=== PATIENT | male | born 1960 | race Caucasian/White ===

== ENCOUNTER → 2017-12-29 09:45 | Outpatient (POV) | payer OTHER, SELFPAY ==
[2017-12-29 09:59] VITALS: BP 167/98; PULSE 109; RESP 18; O2SAT 98
--- NOTE | 2017-12-29 11:49 | HMH.PMCON ---
Assessment and Plan (1) Degenerative disc disease Current visit: Yes Status: Chronic Qualifiers: Spinal region: lumbar Qualified Code(s): M51.36 - Other intervertebral disc degeneration, lumbar region Category: Medical (2) Postlaminectomy syndrome Current visit: Yes Status: Chronic Category: Medical Code(s): M96.1 - Postlaminectomy syndrome, not elsewhere classified (3) Radiculopathy Current visit: Yes Status: Chronic Qualifiers: Spinal region: lumbar Qualified Code(s): M54.16 - Radiculopathy, lumbar region Category: Medical Code(s): M54.10 - Radiculopathy, site unspecified - Assessment and plan all Dx Assessment and Plan for all problems:: I discussed with the patient that we would not be medically managing him. Patient and I discussed right to tell a neurostimulator to help with her neck and low back pain along with his radicular symptoms. I provided the patient information with this. Patient is going to review and see if this is something he would like to pursue. I believe it would be beneficial given his pain symptomology along with his failure of physical therapy, injective therapy, medications and anti-inflammatories. This note was dictated using voice recognition software and may contain errors or omissions HPI - Data of Consult Consult date: 12/29/17 Requesting Physician: Lucy Machado APRN Primary Care Provider: Maryellen Easley - Consult Narrative Reason for consult: Back pain, leg pain, Shoulder pain History of present illness: Mr. Lipscomb is a 57 year old male who presents today for consultation in regards to his neck pain, arm pain, back pain, leg pain. Patient was living in [place] being seen by pain management down there after his laminectomy. Patient then transferred care up to [place] to Dr. Bautista office. Patient was seen twice and put on Percocet. The clinic subsequently closed. Patient is here today to discuss options. I discussed with the patient that we do not do medical management patient. Patient and I discussed options for his care. Patient is tried and failed injections in the past. Patient and I talked about neuro stimulation. Patient is interested in this. Patient states that he has neck and right shoulder pain along with low back and bilateral leg pain CC: Lucy Machado APRN [facility] History I have reviewed the patient's past medical history: Yes Medical History: Reports:: Hypertension Other Medical History: Reports: Arthritis Laterality Cases: Bilateral: Arthroscopy Shoulder - *Social History Smoking Status: Current every day smoker Tobacco Type: cigarettes # Packs/Day (cigarettes): 1 Alcohol Intake: never Occupational Status: other Housing: house - Psychiatric History Expresses thoughts of harming self/others: None Suicide Plan Description: No Plan *Family Hx:: Unable to obtain Review of Systems - Review of Systems ROS General: no recent weight change, no fever, no sleep disturbances Respiratory: no cough, no shortness of air, no recurring pulmonary infections Cardiovascular/Peripheral Vascular: No chest pain, No palpitations, no edema, no shortness of breath. Gastrointestinal: no incontinence, normal bowel movements reported Genitourinary: no incontinence Musculoskeletal: Back pain, leg pain, neck pain, arm pain Psychiatric: normal mood/ affect Neurological: [denies weakness in extremities], [denies balance issues] Meds Home Medications Medication Instructions Recorded Confirmed Type Meloxicam 15 mg PO DAILY 12/29/17 12/29/17 History Methocarbamol [Methocarbamol 500mg 500 mg PO DAILY 12/29/17 12/29/17 History Tablet] Oxycodone HCl/Acetaminophen 10 mg PO TID 12/29/17 12/29/17 History [Oxycodone W/Apap 325mg Tablet] Telmisartan 40 mg PO DAILY 12/29/17 12/29/17 History hydroCHLOROthiazide 50 mg PO DAILY 12/29/17 12/29/17 History [Hydrochlorothiazide 50mg Tab] Allergies Al
--- NOTE | 2017-12-29 11:53 | P.CONS_ITS ---
Assessment and Plan (1) Degenerative disc disease Current visit: Yes Status: Chronic Qualifiers: Spinal region: lumbar Qualified Code(s): M51.36 - Other intervertebral disc degeneration, lumbar region Category: Medical (2) Postlaminectomy syndrome Current visit: Yes Status: Chronic Category: Medical Code(s): M96.1 - Postlaminectomy syndrome, not elsewhere classified (3) Radiculopathy Current visit: Yes Status: Chronic Qualifiers: Spinal region: lumbar Qualified Code(s): M54.16 - Radiculopathy, lumbar region Category: Medical Code(s): M54.10 - Radiculopathy, site unspecified - Assessment and plan all Dx Assessment and Plan for all problems:: I discussed with the patient that we would not be medically managing him. Patient and I discussed right to tell a neurostimulator to help with her neck and low back pain along with his radicular symptoms. I provided the patient information with this. Patient is going to review and see if this is something he would like to pursue. I believe it would be beneficial given his pain symptomology along with his failure of physical therapy, injective therapy, medications and anti-inflammatories. This note was dictated using voice recognition software and may contain errors or omissions HPI - Data of Consult Consult date: 12/29/17 Requesting Physician: Lucy Machado APRN Primary Care Provider: Maryellen Easley - Consult Narrative Reason for consult: Back pain, leg pain, Shoulder pain History of present illness: Mr. Lipscomb is a 57 year old male who presents today for consultation in regards to his neck pain, arm pain, back pain, leg pain. Patient was living in [place] being seen by pain management down there after his laminectomy. Patient then transferred care up to [place] to Dr. Bautista office. Patient was seen twice and put on Percocet. The clinic subsequently closed. Patient is here today to discuss options. I discussed with the patient that we do not do medical management patient. Patient and I discussed options for his care. Patient is tried and failed injections in the past. Patient and I talked about neuro stimulation. Patient is interested in this. Patient states that he has neck and right shoulder pain along with low back and bilateral leg pain CC: Lucy Machado APRN [facility] History I have reviewed the patient's past medical history: Yes Medical History: Reports:: Hypertension Other Medical History: Reports: Arthritis Laterality Cases: Bilateral: Arthroscopy Shoulder - *Social History Smoking Status: Current every day smoker Tobacco Type: cigarettes # Packs/Day (cigarettes): 1 Alcohol Intake: never Occupational Status: other Housing: house - Psychiatric History Expresses thoughts of harming self/others: None Suicide Plan Description: No Plan *Family Hx:: Unable to obtain Review of Systems - Review of Systems ROS General: no recent weight change, no fever, no sleep disturbances Respiratory: no cough, no shortness of air, no recurring pulmonary infections Cardiovascular/Peripheral Vascular: No chest pain, No palpitations, no edema, no shortness of breath. Gastrointestinal: no incontinence, normal bowel movements reported Genitourinary: no incontinence Musculoskeletal: Back pain, leg pain, neck pain, arm pain Psychiatric: normal mood/ affect Neurological: [denies weakness in extremities], [denies balance issues] Meds Home Medications Medication Instructions Record
== END ==
PROVIDERS: PCP Physician Assistant; Visit Provider Clinical Nurse Specialist Family Health
DX: M51.16 Intervertebral disc disorders with radiculopathy, lumbar region (principal); M96.1 Postlaminectomy syndrome, not elsewhere classified
CPT/HCPCS: 99202